=== PATIENT | male | born 1940 | race Caucasian/White ===

== ENCOUNTER 2022-11-15 09:32 | Day surgery (SDC) | payer MEDICARE, BC ==
[2022-11-14 11:52] VITALS: BMI 22.4
[2022-11-15] MEDS ORDERED: fentaNYL 50 mcg/mL 1 mL Vial ONE (11:56)
[2022-11-15] MEDS ORDERED: Lidocaine 1% PF 5 ML VIAL ONE (12:30)
[2022-11-15] MEDS ORDERED: Dexamethasone 20 MG/5 ML VIAL ONE (12:30)
[2022-11-15] MEDS ORDERED: PROPOFOL 200 MG/20 ML VIAL ONE (12:30)
[2022-11-15] MEDS ORDERED: Ondansetron PF 4 MG/2 ML Vial ONE (12:30)
== END 2022-11-15 14:19 | disposition home or self-care (01) ==
LOC: MRI 09:32
PROVIDERS: ATTEND Neurological Surgery
DX: M48.062 Spinal stenosis, lumbar region with neurogenic claudication (principal); M51.36 Other intervertebral disc degeneration, lumbar region; E78.00 Pure hypercholesterolemia, unspecified; F32.A Depression, unspecified; E11.9 Type 2 diabetes mellitus without complications; M10.9 Gout, unspecified; N40.0 Benign prostatic hyperplasia without lower urinary tract symptoms; G43.909 Migraine, unspecified, not intractable, without status migrainosus; Z87.891 Personal history of nicotine dependence; Z95.0 Presence of cardiac pacemaker; Z79.899 Other long term (current) drug therapy
CPT/HCPCS: 72148; 93005; J3010; 93010; J1100; J2405; J2704

== ENCOUNTER 2023-05-05 09:57 | Outpatient (CLI) | payer MEDICARE, BC ==
[2023-05-05 13:19] LABS: Hematocrit 34.6 % (38.8-50.0); Mean Corpuscular HGB CONC 31.8 g/dL (32.0-36.0); Mean Corpuscular Hemoglobin 26.8 pg (27.0-33.0); Mean Corpuscular Volume 84.4 fl (81.2-95.1); Mean Platelet Volume 11.8 fl (7.4-10.4); Platelet Count 267 10x3/uL (150-450); RBC Distribution Width 16.3 % (11.5-14.5); White Blood Cell (WBC) Count 7.3 10x3/uL (3.5-10.5)
[2023-05-05 13:33] LABS: INR-International Normal Ratio 1.1; PTT 38.4 sec (22.0-33.0); Prothrombin Time 11.4 sec (9.5-12.1)
[2023-05-05 13:36] LABS: Anion Gap 16 mmol/L (10-20); BUN (Urea Nitrogen) 23 mg/dL (8.4-25.7); Calc. Creatinine Clearance 0 mL/min (70-130); Calcium 9.4 mg/dL (7.8-10.44); Carbon Dioxide 25 mmol/L (23-31); Chloride 103 mmol/L (98-107); Estimated GFR 57; Glucose 127 mg/dL (83-110); Sodium 139 mmol/L (136-145)
== END 2023-05-05 09:58 | disposition home or self-care (01) ==
LOC: LABBT 09:57
PROVIDERS: ATTEND Neurological Surgery
DX: Z01.812 Encounter for preprocedural laboratory examination (principal); M48.061 Spinal stenosis, lumbar region without neurogenic claudication
CPT/HCPCS: 80048; 85027; 85610; 85730

== ENCOUNTER 2023-05-05 14:00 | Inpatient (IN) | payer MEDICARE, BC ==
[2023-05-05 10:58] VITALS: BMI 23.1
[2023-05-13] MEDS ORDERED: EPINEPHrine 1 MG/ML VIAL ONE (06:10)
[2023-05-13] MEDS ORDERED: Vancomycin 1 GM VIAL ONE (06:10)
[2023-05-13] MEDS ORDERED: Bupivacaine PF 0.5% 30 ML VIAL ONE (06:11)
[2023-05-13] MEDS ORDERED: Thrombin 5000 UNITS/5 ML VIAL ONE (06:11)
[2023-05-13] MEDS ORDERED: fentaNYL PF 100 MCG/2 ML SYRINGE ONE (06:21)
[2023-05-13] MEDS ORDERED: PROPOFOL 20 ML ONE (06:21)
[2023-05-13] MEDS ORDERED: ePHEDrine Sulfate 50 MG/10 ML VIAL ONE (06:21)
[2023-05-13] MEDS ORDERED: Ondansetron PF 4 MG/2 ML Vial ONE (06:22)
[2023-05-13] MEDS ORDERED: Lidocaine 1% PF 5 ML VIAL ONE (06:22)
[2023-05-13] MEDS ORDERED: Dexamethasone 20 MG/5 ML VIAL ONE (06:22)
[2023-05-13] MEDS ORDERED: Rocuronium Bromide 10 MG/ML (10ML VIAL) ONE ×2 (06:22→11:16)
[2023-05-13] MEDS ORDERED: Morphine 2 MG/ML VIAL SLOW IVP PRN (06:28)
[2023-05-13] MEDS ORDERED: Ondansetron PF 4 MG/2 ML Vial IVP PRN (06:28)
[2023-05-13] MEDS ORDERED: diphenhydrAMINE 50 MG/ML VIAL IVP PRN (06:28)
[2023-05-13] MEDS ORDERED: Acetaminophen/Codeine 30-300mg Tablet PO PRN (06:28)
[2023-05-13] MEDS ORDERED: HYDROcodone/Acetaminophen 7.5/325 mg Tablet PO PRN (06:28)
[2023-05-13] MEDS ORDERED: HYDROcodone/Acetaminophen 10/325 mg Tablet PO PRN (06:28)
[2023-05-13] MEDS ORDERED: Sodium Chloride 0.9% 1,000 ML IV SCH (06:30)
[2023-05-13] MEDS ORDERED: tiZANidine HCl 4 MG TAB PO PRN (06:30)
[2023-05-13] MEDS ORDERED: CEFAZOLIN 2 GM VIAL ONE (06:38)
[2023-05-13] MEDS ORDERED: Sodium Chloride 0.9% 100 ML ONE (06:38)
[2023-05-13] MEDS ORDERED: Promethazine HCl 25 MG/ML VIAL IM PRN (06:52)
[2023-05-13] MEDS ORDERED: Ondansetron HCl/PF 4 MG/2 ML Vial IVP PRN (06:52)
[2023-05-13] MEDS ORDERED: HYDROmorphone 2 MG/ML VIAL SLOW IVP PRN (06:52)
[2023-05-13] MEDS ORDERED: Sterile Water 20 ML ONE (11:33)
[2023-05-13] MEDS ORDERED: CEFAZOLIN 1 GM VIAL ONE (11:33)
[2023-05-13] MEDS ORDERED: SUGAMMADEX SODIUM 200 MG/2 ML VIAL ONE (12:32)
[2023-05-13] MEDS ORDERED: HYDROmorphone 2 MG/ML VIAL ONE (12:35)
[2023-05-13] MEDS ORDERED: HYDROmorphone 0.5 MG/0.5 ML SYRINGE ONE (13:37)
[2023-05-13] MEDS ORDERED: fentaNYL 50 mcg/mL 1 mL Vial ONE (13:49)
[2023-05-13] MEDS: CEFAZOLIN 2 GM in Sodium Chloride 0.9% 100 ML IVPB SCH ×2 (16:41→21:37)
[2023-05-13] MEDS ORDERED: Glucagon 1 MG/ML KIT IM PRN (20:06)
[2023-05-13] MEDS ORDERED: HumaLOG 300 UNITS/3 ML VIAL SC PRN ×2 (20:06)
[2023-05-13] MEDS ORDERED: Dextrose 5% in Water 1,000 ML IV PRN (20:06)
[2023-05-13] MEDS ORDERED: Dextrose 50% Abboject 50 ML SYRINGE SLOW IVP PRN (20:06)
[2023-05-13] MEDS ORDERED: Melatonin 3 MG TAB PO PRN (20:07)
[2023-05-13] MEDS ORDERED: Allopurinol 300 MG TAB PO SCH (21:00)
[2023-05-13] MEDS: Metoprolol Tartrate 50 MG TAB PO SCH (21:36)
[2023-05-14] MEDS ORDERED: hydrOXYzine 25 MG TAB PO PRN (01:54)
[2023-05-14 06:44] LABS: #Monocytes 1.5 thou/uL (0.11-0.59); #Neutrophils 10.5 thou/uL (1.40-6.50); %Basophils 0.1 % (0.0-1.0); %Lymphocytes 5.2 % (21.0-51.0); %Monocytes 11.7 % (0.0-10.0); %Neutrophils 82.5 % (42.0-75.0); Hematocrit 28.9 % (42.0-52.0); Hemoglobin 9.4 g/dL (14.0-18.0); Mean Corpuscular HGB CONC 32.5 g/dL (32.0-36.0); Mean Corpuscular Hemoglobin 27.2 pg (27.0-31.0); Mean Corpuscular Volume 83.5 fl (78.0-98.0); Mean Platelet Volume 10.8 fL (7.4-10.4); Platelet Count 240 10x3/uL (130-400); RBC Distribution Width 16.6 % (11.5-14.5); Red Blood Cell (RBC) Count 3.46 mill/uL (4.70-6.10); White Blood Cell (WBC) Count 12.8 10x3/uL (4.8-10.8)
[2023-05-14 07:10] LABS: Anion Gap 13 mmol/L (10-20); BUN (Urea Nitrogen) 22 mg/dL (8.4-25.7); Calc. Creatinine Clearance 54 mL/min (70-130); Calcium 8.5 mg/dL (7.8-10.44); Carbon Dioxide 25 mmol/L (23-31); Chloride 103 mmol/L (98-107); Estimated GFR 64; Glucose 200 mg/dL (83-110); Potassium 4.7 mmol/L (3.5-5.1); Sodium 136 mmol/L (136-145)
[2023-05-14] MEDS: Metoprolol Tartrate 50 MG TAB PO SCH (08:41)
[2023-05-14] MEDS ORDERED: Magnesium Oxide 400 MG TAB PO SCH (09:00)
[2023-05-14] MEDS ORDERED: Atorvastatin Calcium 20 MG TAB PO SCH (09:00)
[2023-05-14] MEDS ORDERED: dilTIAZem CD 240 MG CAP PO SCH (09:00)
[2023-05-14] MEDS ORDERED: Cholecalciferol 1,000 UNITS (25 MCG) TAB PO SCH (09:00)
[2023-05-14] MEDS ORDERED: Lisinopril 2.5 MG TAB PO SCH (09:00)
[2023-05-14 11:25] VITALS: BP 131/64; TEMP 98.2
== END 2023-05-14 14:30 | disposition home or self-care (01) | DRG 455 ==
LOC: SURG A 05-13 05:41 → SJJU 05-13 14:44
PROVIDERS: ADMIT Neurological Surgery; ATTEND Neurological Surgery
PROC: 0SG00AJ Fusion of Lumbar Vertebral Joint with Interbody Fusion Device, Posterior Approach, Anterior Column, Open Approach (ICD-10-PCS; principal; 2023-05-13)
PROC: 0SG0071 Fusion of Lumbar Vertebral Joint with Autologous Tissue Substitute, Posterior Approach, Posterior Column, Open Approach (ICD-10-PCS; 2023-05-13)
PROC: 01NB0ZZ Release Lumbar Nerve, Open Approach (ICD-10-PCS; 2023-05-13)
PROC: 0SB20ZZ Excision of Lumbar Vertebral Disc, Open Approach (ICD-10-PCS; 2023-05-13)
PROC: 0SG3071 Fusion of Lumbosacral Joint with Autologous Tissue Substitute, Posterior Approach, Posterior Column, Open Approach (ICD-10-PCS; 2023-05-13)
PROC: 0SP00AZ Removal of Interbody Fusion Device from Lumbar Vertebral Joint, Open Approach (ICD-10-PCS; 2023-05-13)
DX: M48.062 Spinal stenosis, lumbar region with neurogenic claudication (principal); E78.00 Pure hypercholesterolemia, unspecified; E11.9 Type 2 diabetes mellitus without complications; M10.9 Gout, unspecified; G43.909 Migraine, unspecified, not intractable, without status migrainosus; M43.16 Spondylolisthesis, lumbar region; M54.16 Radiculopathy, lumbar region; M53.2X6 Spinal instabilities, lumbar region; E78.5 Hyperlipidemia, unspecified; I48.0 Paroxysmal atrial fibrillation; Z98.890 Other specified postprocedural states; Z95.5 Presence of coronary angioplasty implant and graft; Z87.891 Personal history of nicotine dependence; Z88.8 Allergy status to other drugs, medicaments and biological substances; Z79.01 Long term (current) use of anticoagulants; Z79.899 Other long term (current) drug therapy
CPT/HCPCS: 36415; 36416; 80048; 85025; A4314; C1713; C1889; J0171; J0665; J0690; J1100; J1170; J2405; J2704; J3010; J3370; J3490; J7050

== ENCOUNTER 2023-05-17 17:10 | Observation (INO) | payer MEDICARE, BC ==
[~2023-05-17 17:10] MED LIST: Iopamidol-370 76% 500 ML MDV (1 ML CHARGE) ONE
[2023-05-17 19:27] LABS: #Eosinphils 0.2 thou/uL (0.0-0.7); #Monocytes 0.7 thou/uL (0.11-0.59); #Neutrophils 6.6 thou/uL (1.40-6.50); %Basophils 0.4 % (0.0-1.0); %Eosinophils 2.8 % (0.0-10.0); %Lymphocytes 7.9 % (21.0-51.0); %Monocytes 8.9 % (0.0-10.0); %Neutrophils 79.3 % (42.0-75.0); Hematocrit 27.7 % (42.0-52.0); Mean Corpuscular HGB CONC 32.5 g/dL (32.0-36.0); Mean Corpuscular Hemoglobin 26.7 pg (27.0-31.0); Mean Corpuscular Volume 82.2 fl (78.0-98.0); Platelet Count 246 10x3/uL (130-400); RBC Distribution Width 16.4 % (11.5-14.5); Red Blood Cell (RBC) Count 3.37 mill/uL (4.70-6.10); White Blood Cell (WBC) Count 8.3 10x3/uL (4.8-10.8)
[2023-05-17 19:53] LABS: CRP (Inflammatory) 11.05 mg/dL (= or < 0.5)
[2023-05-17 19:54] LABS: ALT (SGPT) 36 U/L (8-55); AST (SGOT) 32 U/L (5-34); Albumin 3.5 g/dL (3.4-4.8); Alkaline Phosphatase 208 U/L (40-110); Anion Gap 13 mmol/L (10-20); BUN (Urea Nitrogen) 22 mg/dL (8.4-25.7); Bilirubin, Total 0.6 mg/dL (0.2-1.2); Calc. Creatinine Clearance 0 mL/min (70-130); Calcium 8.8 mg/dL (7.8-10.44); Carbon Dioxide 26 mmol/L (23-31); Chloride 96 mmol/L (98-107); Estimated GFR 66; Globulin 2.5 g/dL (2.4-3.5); Glucose 152 mg/dL (83-110); Potassium 4.1 mmol/L (3.5-5.1); Sodium 131 mmol/L (136-145)
[2023-05-18 00:43] VITALS: BMI 22.8
[2023-05-18] MEDS ORDERED: HumaLOG 300 UNITS/3 ML VIAL SC PRN ×2 (00:49)
[2023-05-18] MEDS ORDERED: Dextrose 50% Abboject 50 ML SYRINGE SLOW IVP PRN (00:49)
[2023-05-18] MEDS ORDERED: Dextrose 5% in Water 1,000 ML IV PRN (00:49)
[2023-05-18] MEDS ORDERED: Glucagon 1 MG/ML KIT IM PRN (00:49)
[2023-05-18] MEDS: tiZANidine HCl 4 MG TAB PO PRN ×2 (01:14→23:14)
[2023-05-18] MEDS: Ketorolac Tromethamine 30 MG (1 mL) VIAL IVP PRN ×2 (01:16→23:14)
[2023-05-18 05:52] LABS: #Eosinphils 0.4 thou/uL (0.0-0.7); #Monocytes 0.7 thou/uL (0.11-0.59); #Neutrophils 4.1 thou/uL (1.40-6.50); %Basophils 0.3 % (0.0-1.0); %Lymphocytes 10.8 % (21.0-51.0); %Monocytes 12.5 % (0.0-10.0); %Neutrophils 69.9 % (42.0-75.0); Hematocrit 27.8 % (42.0-52.0); Hemoglobin 8.7 g/dL (14.0-18.0); Mean Corpuscular HGB CONC 31.3 g/dL (32.0-36.0); Mean Corpuscular Hemoglobin 26.1 pg (27.0-31.0); Mean Corpuscular Volume 83.5 fl (78.0-98.0); Mean Platelet Volume 11.4 fL (7.4-10.4); Platelet Count 236 10x3/uL (130-400); RBC Distribution Width 16.3 % (11.5-14.5); Red Blood Cell (RBC) Count 3.33 mill/uL (4.70-6.10); White Blood Cell (WBC) Count 5.8 10x3/uL (4.8-10.8)
[2023-05-18 06:21] LABS: Anion Gap 13 mmol/L (10-20); BUN (Urea Nitrogen) 22 mg/dL (8.4-25.7); Calc. Creatinine Clearance 54 mL/min (70-130); Calcium 8.8 mg/dL (7.8-10.44); Carbon Dioxide 25 mmol/L (23-31); Chloride 99 mmol/L (98-107); Estimated GFR 67; Glucose 126 mg/dL (83-110); Potassium 4.2 mmol/L (3.5-5.1); Sodium 133 mmol/L (136-145)
[2023-05-18] MEDS: Atorvastatin Calcium 20 MG TAB PO SCH (09:22)
[2023-05-18] MEDS: Cholecalciferol 1,000 UNITS (25 MCG) TAB PO SCH (09:22)
[2023-05-18] MEDS: Magnesium Oxide 400 MG TAB PO SCH (09:22)
[2023-05-18] MEDS: dilTIAZem CD 240 MG CAP PO SCH (09:23)
[2023-05-18] MEDS: Lisinopril 2.5 MG TAB PO SCH (09:23)
[2023-05-18] MEDS: Ferrous Gluconate 324 MG TAB PO SCH (09:23)
[2023-05-18] MEDS: Metoprolol Tartrate 50 MG TAB PO SCH ×2 (09:23→20:48)
[2023-05-18] MEDS: Betamethasone 0.1% Cream 15 GM TUBE TOP SCH ×3 (09:24→20:43)
[2023-05-18] MEDS ORDERED: GoLYTELY 4,000 ml Bottle PO SCH (15:15)
[2023-05-18] MEDS ORDERED: Melatonin 3 MG TAB PO SCH (21:00)
[2023-05-18] MEDS ORDERED: hydrOXYzine 25 MG TAB PO SCH (21:00)
[2023-05-18] MEDS ORDERED: Allopurinol 300 MG TAB PO SCH (21:00)
[2023-05-19] MEDS: Metoprolol Tartrate 50 MG TAB PO SCH (05:30)
[2023-05-19 06:22] LABS: #Eosinphils 0.4 thou/uL (0.0-0.7); #Monocytes 0.7 thou/uL (0.11-0.59); #Neutrophils 3.5 thou/uL (1.40-6.50); %Basophils 0.6 % (0.0-1.0); %Eosinophils 7.2 % (0.0-10.0); %Lymphocytes 13.8 % (21.0-51.0); %Monocytes 12.7 % (0.0-10.0); %Neutrophils 64.6 % (42.0-75.0); Hematocrit 26.7 % (42.0-52.0); Hemoglobin 8.4 g/dL (14.0-18.0); Mean Corpuscular HGB CONC 31.5 g/dL (32.0-36.0); Mean Corpuscular Hemoglobin 26.5 pg (27.0-31.0); Mean Corpuscular Volume 84.2 fl (78.0-98.0); Mean Platelet Volume 11.1 fL (7.4-10.4); Platelet Count 274 10x3/uL (130-400); RBC Distribution Width 16.3 % (11.5-14.5); Red Blood Cell (RBC) Count 3.17 mill/uL (4.70-6.10); White Blood Cell (WBC) Count 5.4 10x3/uL (4.8-10.8)
[2023-05-19 06:43] LABS: Anion Gap 13 mmol/L (10-20); BUN (Urea Nitrogen) 20 mg/dL (8.4-25.7); Calc. Creatinine Clearance 54 mL/min (70-130); Calcium 8.5 mg/dL (7.8-10.44); Carbon Dioxide 31 mmol/L (23-31); Chloride 97 mmol/L (98-107); Estimated GFR 67; Glucose 153 mg/dL (83-110); Potassium 3.7 mmol/L (3.5-5.1); Sodium 137 mmol/L (136-145)
[2023-05-19] MEDS ORDERED: PROPOFOL 0 ML ONE (07:45)
[2023-05-19] MEDS ORDERED: PROPOFOL 20 ML ONE ×2 (07:57→08:04)
[2023-05-19] MEDS ORDERED: PHENYLEPHRINE-NS 100 MCG/ML 10 ML SYRINGE ONE (08:05)
[2023-05-19] MEDS: Atorvastatin Calcium 20 MG TAB PO SCH (09:02)
[2023-05-19] MEDS: Cholecalciferol 1,000 UNITS (25 MCG) TAB PO SCH (09:02)
[2023-05-19] MEDS: Magnesium Oxide 400 MG TAB PO SCH (09:02)
[2023-05-19] MEDS: Lisinopril 2.5 MG TAB PO SCH (09:02)
[2023-05-19] MEDS: Ferrous Gluconate 324 MG TAB PO SCH (09:02)
[2023-05-19] MEDS: Betamethasone 0.1% Cream 15 GM TUBE TOP SCH ×2 (09:06→13:33)
[2023-05-19] MEDS: dilTIAZem CD 240 MG CAP PO SCH (09:13)
[2023-05-19] MEDS ORDERED: Polyethylene Glycol 3350 17 GM Packet PO SCH ×2 (09:45→21:00)
[2023-05-19] MEDS ORDERED: Senokot 8.6 MG TAB PO SCH (11:45)
[2023-05-19 12:08] VITALS: BP 142/66; TEMP 97.3
[2023-05-19] MEDS: Ketorolac Tromethamine 30 MG (1 mL) VIAL IVP PRN (12:54)
== END 2023-05-19 16:05 | disposition home or self-care (01) ==
LOC: ERS 17:10 → T4-A 23:00
PROVIDERS: ADMIT Family Medicine; ATTEND Family Medicine
PROC: 0DJD8ZZ Inspection of Lower Intestinal Tract, Via Natural or Artificial Opening Endoscopic (ICD-10-PCS; principal; 2023-05-19)
DX: K59.09 Other constipation (principal); K62.89 Other specified diseases of anus and rectum; K63.89 Other specified diseases of intestine; I48.91 Unspecified atrial fibrillation; I10 Essential (primary) hypertension; E78.5 Hyperlipidemia, unspecified; E11.9 Type 2 diabetes mellitus without complications; Z79.84 Long term (current) use of oral hypoglycemic drugs; Z79.899 Other long term (current) drug therapy; Z98.890 Other specified postprocedural states; Z90.89 Acquired absence of other organs; Z91.018 Allergy to other foods; Z79.01 Long term (current) use of anticoagulants; Z88.1 Allergy status to other antibiotic agents
CPT/HCPCS: 45378; 74022; 74177; 80048 ×2; 80053; 82962 ×2; 83605; 83690; 85025 ×3; 86140; 96374; 96376; 97116; 99285; G0378 ×3; 36415; 36416; J1885; J2704; Q9967

== ENCOUNTER 2023-06-10 08:43 | Outpatient (CLI) | payer MEDICARE, BC | END 2023-06-10 08:44 | disposition home or self-care (01) | LOC: ULT 08:43 | PROVIDERS: ATTEND Physician Assistant Medical | DX: R74.8 Abnormal levels of other serum enzymes (principal); D64.9 Anemia, unspecified; K76.89 Other specified diseases of liver | CPT/HCPCS: 76705 ==